=== PATIENT | male | born 1980 | race American Indian/Alaskan Native ===

== ENCOUNTER 2019-02-24 12:00 | Inpatient (IN) | payer BC ==
--- NOTE | 2019-02-24 12:08 | Emergency Department Report ---
Blank Doc - Documentation Documentation: This is a 39-year-old male that presents left sided numbness and headache. Exam: no facial drooping. Normal strength bilateral. No one-sided weakness noted. This initial assessment/diagnostic orders/clinical plan/treatment(s) is/are subject to change based on patient's health status, clinical progression and re- assessment by fellow clinical providers in the ED. Further treatment and workup at subsequent clinical providers discretion. Patient/guardians urged not to el ope from the ED as their condition may be serious if not clinically assessed and managed. Initial orders include: 1- Patient sent to MAIN ED for further evaluation and treatment 2- labs 3- CT head
--- NOTE | 2019-02-24 12:29 | Emergency Department Report ---
HPI - General Chief Complaint: Neuro Symptoms/Deficit Time Seen by Provider: 02/24/19 12:06 - HPI HPI: Room 5 The patient is a 39-year-old male presenting with a chief complaint of headache and left-sided weakness. The patient states he's had a left-sided headache for the past 4 days. Patient states he went to sleep last night at 22:00 but when he awakened this morning he noticed his headache had worsened and he had left- sided weakness. Patient states when he ambulates he appears to deviate to the left. Patient also complains of numbness to the left side of his body. Patient states he had slight dysarthria but denies dysphagia. Patient denies nausea/vomiting. Location: [See above] Duration: [See above] Quality: [See above] Severity: [See above] Modifying factors: [see above] Context: [see above] Mode of transportation: [not driving] ED Past Medical Hx - Past Medical History Previous Medical History?: No - Surgical History Past Surgical History?: No - Social History Smoking Status: Never Smoker Substance Use Type: None (denies illicit drug use), Alcohol (occasional) ED Review of Systems ROS: Stated complaint: NUMB LFT SIDE Other details as noted in HPI Constitutional: chills Eyes: denies: eye pain ENT: denies: throat pain Respiratory: no symptoms reported Cardiovascular: denies: chest pain Endocrine: no symptoms reported Gastrointestinal: denies: nausea, vomiting Genitourinary: denies: dysuria Musculoskeletal: denies: back pain Neurological: headache, weakness, numbness Physical Exam - Physical Exam Vital Signs: Vital Signs 02/24/19 12:06 Temperature 97.7 F Pulse Rate 67 Respiratory 16 Rate Blood Pressure 145/89 O2 Sat by Pulse 98 Oximetry Physical Exam: GENERAL: The patient is well-developed well-nourished male lying on stretcher not appear to be in acute distress. [] HEENT: Normocephalic. Atraumatic. Extraocular motions are intact. Patient has moist mucous membranes. NECK: Supple. Trachea midline CHEST/LUNGS: Clear to auscultation. There is no respiratory distress noted. HEART/CARDIOVASCULAR: Regular. There is no tachycardia. There is no gallop rub or murmur. ABDOMEN: Abdomen is soft, nontender. Patient has normal bowel sounds. There is no abdominal distention. SKIN: There is no rash. There is no edema. There is no diaphoresis. NEURO: The patient is awake, alert, and oriented. The patient is cooperative. The patient has no focal neurologic deficits. The patient has normal speech. Cranial nerves II through XII grossly intact with exception of left-sided V1 and V2 distribution. No drift. Patient able to hold either leg at 30 angle for 5 seconds count MUSCULOSKELETAL: There is no evidence of acute injury. NIHSS= 1 LOC a. Alert= 0 Not alert but arousable to minor stimuli=1 Not alert requires repeated or strong stimuli to move= 2 Responds only reflex motor or unresponsive=3 b. asks month and age answers both correctly= 0 answers one correctly= 1 answers neither correctly= 2 Best Gaze normal= 0 abnormal in one or both but forced deviation or total paresis absent= 1 forced deviation or total gaze paresis= 2 Visual no visual loss= 0 partial hemianopia= 1 complete hemianopia= 2 bilateral hemianopia= 3 Facial Palsy normal= 0 minor paralysis= 1 partial paralysis= 2 complete paralysis= 3 Motor Arm no drift= 0 drift before 10 secs but doesnt hit bed= 1 some effort against gravity= 2 no effort against gravity= 3 no movement= 4 Motor leg no drift= 0 drift before 5 secs but doesnt hit bed= 1 drifts to bed before 5 secs= 2 no effort against gravity= 3 no movement= 4 Limb ataxia absent=0 present in one limb= 1 present in two limbs= 2 Sensory normal= 0 (+)mild sensory loss= 1 severe (unaware of being touched)= 2 Best language mild/some loss of fluency= 1 severe= 2 mute= 3 Dysarthria normal= 0 slurs some words= 1 severe/unintelligible= 2 Extinction and Inattention no abnormality= 0 visual, tactile, auditory or personal inattention= 1 profound (doesnt recognize own hand or orients to only one side= 2 ED Course Vital Signs 02/24/19 12:06 Temperature 97.7 F Pulse Rate 67 Respiratory 16 Rate Blood Pressure 145/89 O2 Sat by Pulse 98 Oximetry - Consultations Consultation #1: 02/24/19 12:46 Case discussed with tele-neurologist- recommends MRI. No stroke intervention at this time ED Medical Decision Making - Lab Data Result diagrams: 02/24/19 12:19 02/24/19 12:19 - EKG Data -: EKG Interpreted by Me EKG shows normal: sinus rhythm Rate: normal - EKG Data When compared to previous EKG there are: previous EKG unavailable Interpretation: nonspecific ST-T wave suhas (T-wave inversion in lead V2) - Radiology Data Radiology results: report reviewed (CT head), image reviewed (CT head) [facility] [address] [id number] Cat Scan Report Signed Patient: BREONNA DE LEÓN R#: [id number] : 1980 Acct:[id number] Age/Sex: 39 / M ADM Date: 02/24/19 Loc: ED Attending Dr: Ordering Physician: YUN LAINEZ NP Date of Service: 02/24/19 Procedure(s): CT head/brain wo con Accession Number(s): [id number] cc: YUN LAINEZ NP CT HEAD WITHOUT CONTRAST: HISTORY: Stroke symptoms. TECHNIQUE: Sequential 2.5mm CT images. COMPARISON: none. FINDINGS: Cerebral Parenchyma: Within normal limits. Cerebellum: Within normal limits. Brainstem: Within normal limits. Ventricles: Normal. Sella: Normal. Extra-axial spaces: Normal. Basal Cisterns: Normal. Intracranial Hemorrhage: None. Midline Shift: None. Calvarium: Normal. Sinuses: Normal. Mastoid Air Cells: Normal. Visualized Orbits: Normal. IMPRESSION: Cranial CT scan within normal limits. These findings were discussed with Dr. Miranda in the emergency department at 1254 hrs. Transcribed By: TTR Dictated By: KELI LEMA JR, MD Electronically Authenticated By: KELI LEMA JR, MD Signed Date/Time: 02/24/19 125 DD/ 125 TD/TT: 02/24/19 1254 - Differential Diagnosis CVA, TIA, complex migraine, intracranial mass, ICH Critical care attestation.: If time is entered above; I have spent that time in minutes in the direct care of this critically ill patient, excluding procedure time. ED Disposition Clinical Impression: Left sided numbness, Headache Disposition: OP ADMIT IP TO THIS HOSP Is pt being admited?: Yes Does the pt Need Aspirin: Yes Condition: Fair Time of Disposition: 12:59 (hospitalist notified (Dr Costa))
[2019-02-24 12:34] LABS: Basophils # (Auto) 0.1 K/mm3 (0.0-0.1); Basophils % (Auto) 0.8 % (0.0-1.8); Eosinophils # (Auto) 0.2 K/mm3 (0.0-0.4); Eosinophils % (Auto) 1.9 % (0.0-4.3); Hematocrit 47.8 % (35.5-45.6); Lymphocytes # (Auto) 2.4 K/mm3 (1.2-5.4); Lymphocytes % (Auto) 29.8 % (13.4-35.0); Mean Corpuscular HGB Conc 34 % (32-34); Mean Corpuscular Volume 89 fl (84-94); Monocytes # (Auto) 0.6 K/mm3 (0.0-0.8); Monocytes % (Auto) 7.2 % (0.0-7.3); Platelet Count 263 K/mm3 (140-440); Red Cell Distribution Width 13.3 % (13.2-15.2)
--- NOTE | 2019-02-24 12:42 | Consultation ---
History of Present Illness History of present illness: [facility] Impression: Patient with GODOY and left-sided numbness. Rule out right hemispheric lacunar infarct with MRI. More likely migrainous. Consider conversion, as well. Not a tpa candidate due to: out of window, mild/nondisabling symptoms Not an YEN candidate due to: presentation not suggestive of LVO - no cortical/large vessel signs Differential Diagnosis: 1. Cardioembolic stroke 2. Small vessel disease/lacune 3. Thromboembolic, [id number] mechanism 4. Hypercoagulable state-related infarct 5. Transient ischemic attack 6. Thrombotic mechanism, large artery disease 7. Migraine 8. Conversion Comments: Door time: 1200 [facility] contacted: 1228 [facility] at bedside: 1233 NIHSS assessment time: 1241 (pt in CT on log in) Recommendations: MRI brain wo ASA inpatient neurology consultation Inpatient stroke evaluation as per Neurology/ Internal Medicine Discussed with ED MD CC: stroke alert History of Present Illness Patient is a39 year old man presenting with left-sided numbness. He states he's had a GODOY for the last 4 days. He went to bed normal last night at 2200 and woke this morning with GODOY and left-sided numbness. No weakness, vision change, speech/language changes, vertigo, hearing change, incoordination, gait change, CP. Diagnostic: CT head wo - nothing acute Exam: NIHSS score: 1 Mild sensory loss left side Medical Decision Making: - Extensive number of diagnosis or management options are considered above. - Extensive amount of complex data reviewed. - High risk of complication and/or morbidity or mortality are associated with differential diagnostic considerations above. - There may be Uncertain outcome and increased probability of prolonged functional impairment or high probability of severe prolonged functional impairment associated with some of these differential diagnosis. Medical Data Reviewed: 1.Data reviewed include clinical labs, radiology, Medical Tests; 2.Tests results discussed w/performing or interpreting physician; 3.Obtaining/reviewing old medical records; 4.Obtaining case history from another source; 5.Independent review of image, tracing or specimen. Patient was informed the Neurology Consult would happen via telehealth (remote video) and consented to receiving care in this manner. Medications and Allergies Allergies Allergy/AdvReac Type Severity Reaction Status Date / Time No Known Allergies Allergy Unverified 02/24/19 12:02 Home Medications Medication Instructions Recorded Confirmed Last Taken Type No Known Home Medications [No 02/24/19 02/24/19 Unknown History Reported Home Medications] Physical Examination - Vital Signs Vital Signs: Vital Signs Temp Pulse Resp BP Pulse Ox 97.7 F 67 16 145/89 98 02/24/19 12:06 02/24/19 12:06 02/24/19 12:06 02/24/19 12:06 02/24/19 12:06 - Level of Consciousness 1a. Level of Consciousness: alert/keenly responsive - LOC Questions 1b. LOC Questions: answers both correctly - LOC Command 1c. LOC Commands: performs tasks correctly - Best Gaze 2. Best Gaze: normal - Visual 3. Visual: no visual loss - Facial Palsy 4. Facial Palsy: normal symmetrical movement - Motor Arm 5a. Motor Arm Left: no drift 5b. Motor Arm Right: no drift - Motor Leg 6a. Motor Leg Left: no drift 6b. Motor Leg Right: no drift - Limb Ataxia 7. Limb Ataxia: absent - Sensory 8. Sensory: mild/moderate sensory loss - Best Language 9. Best Language: no aphasia - Dysarthria 10. Dysarthria: normal - Extinction and Inattention 11. Extinction/Inattention: no abnormality - Scoring Total Score: 1 Stroke Severity: Minor Stroke Results - Laboratory Findings CBC and BMP: 02/24/19 12:19 02/24/19 12:19 Abnormal Lab Findings: Abnormal Labs 02/24/19 12:19 RBC 5.40 H Hgb 16.0 H Hct 47.8 H
[2019-02-24 12:44] LABS: INR 0.9 (0.87-1.13)
[2019-02-24 12:45] LABS: Partial Thromboplastin Time 26.4 Sec. (24.2-36.6)
[2019-02-24 12:50] LABS: BUN/Creatinine Ratio 19; Blood Urea Nitrogen 13 mg/dL (9-20); Calcium 9.6 mg/dL (8.4-10.2); Hemolysis Index 10
[2019-02-24] MEDS ORDERED: ASPIRIN PO ONE (12:57)
--- NOTE | 2019-02-24 12:59 | Cat Scan Report ---
CT HEAD WITHOUT CONTRAST: HISTORY: Stroke symptoms. TECHNIQUE: Sequential 2.5mm CT images. COMPARISON: none. FINDINGS: Cerebral Parenchyma: Within normal limits. Cerebellum: Within normal limits. Brainstem: Within normal limits. Ventricles: Normal. Sella: Normal. Extra-axial spaces: Normal. Basal Cisterns: Normal. Intracranial Hemorrhage: None. Midline Shift: None. Calvarium: Normal. Sinuses: Normal. Mastoid Air Cells: Normal. Visualized Orbits: Normal. IMPRESSION: Cranial CT scan within normal limits. These findings were discussed with Dr. Miranda in the emergency department at 1254 hrs.
[2019-02-24] MEDS ORDERED: DILAUDID IV PRN (15:36)
[2019-02-24] MEDS ORDERED: TYLENOL PO PRN (15:36)
[2019-02-24] MEDS ORDERED: ZOFRAN IV PRN (15:36)
[2019-02-24] MEDS ORDERED: SODIUM CHLORIDE FLUSH SYRINGE 10 ML IV PRN ×2 (15:36→15:51)
--- NOTE | 2019-02-24 15:36 | History and Physical Report ---
History of Present Illness Date of examination: 02/24/19 Date of admission: 02/24/19 13:00 Chief complaint: Headaches since 4 days History of present illness: 39-year-old Chinese-speaking male with no significant past medical history comes in for headache since 4 days. Initially mild and intermittent until last night. 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 Associated with nausea. Pain is sharp and about 10 on a scale of 1-10. Patient also experiencing left-sided weakness and left-sided numbness since morning which has nearly resolved by the time of my examination at 1:00 PM. Patient able to walk. No precipitating or exacerbating factors or relieving factors. This is the first episode of severe headache. Never had migraines in the past. Past Medical History Previous Medical History?: No Surgical History Past Surgical History?: No Social History Smoking Status: Never Smoker Substance Use Type: None (denies illicit drug use), Alcohol (occasional) Family History Noncontributory Review of Systems ROS: Stated complaint: NUMB LFT SIDE which has resolved Other details as noted in HPI Constitutional: chills Eyes: denies: eye pain ENT: denies: throat pain Respiratory: no symptoms reported Cardiovascular: denies: chest pain Endocrine: no symptoms reported Gastrointestinal: denies: nausea, vomiting Genitourinary: denies: dysuria Musculoskeletal: denies: back pain Neurological: headache-severe since morning, associated with nausea, weakness, numbness Medications and Allergies Allergies Allergy/AdvReac Type Severity Reaction Status Date / Time No Known Allergies Allergy Verified 02/24/19 15:43 Home Medications Medication Instructions Recorded Confirmed Last Taken Type No Known Home Medications [No 02/24/19 02/24/19 Unknown History Reported Home Medications] Exam - Physical Exam Narrative exam: Lying in bed comfortably - Constitutional Vitals: Temp Pulse Resp BP Pulse Ox 98.7 F 62 18 139/85 100 02/24/19 13:55 02/24/19 13:55 02/24/19 13:55 02/24/19 13:55 02/24/19 13:55 General appearance: Present: no acute distress, well-nourished - EENT Eyes: Present: PERRL ENT: hearing intact, clear oral mucosa - Neck Neck: Present: supple, normal ROM - Respiratory Respiratory effort: normal Respiratory: bilateral: CTA - Cardiovascular Heart rate: 78 Rhythm: regular Heart Sounds: Present: S1 & S2. Absent: rub, click - Extremities Extremities: no ischemia, pulses intact, pulses symmetrical, No edema Peripheral Pulses: within normal limits - Abdominal General gastrointestinal: Present: soft, non-tender, non-distended, normal bowel sounds Male genitourinary: Present: normal - Rectal Rectal Exam: deferred - Integumentary Integumentary: Present: clear, warm, dry - Musculoskeletal Musculoskeletal: strength equal bilaterally, other (power is equal on both upper and lower extremities) - Psychiatric Psychiatric: appropriate mood/affect, intact judgment & insight - Neurologic Neurologic: CNII-XII intact, moves all extremities, gait normal, other (sensory system normal. Motor system normal. Power is 5/5 in all 4 extremities. Reflexes are normal.) Results - Labs CBC & Chem 7: 02/24/19 12:19 02/24/19 12:19 Labs: Laboratory Last Values WBC 8.1 K/mm3 (4.5-11.0) 02/24/19 12: RBC 5.40 M/mm3 (3.65-5.03) H 02/24/19 12:19 Hgb 16.0 gm/dl (11.8-15.2) H 02/24/19 12:19 Hct 47.8 % (35.5-45.6) H 02/24/19 12:19 MCV 89 fl (84-94) 02/24/19 12:19 MCH 30 pg (28-32) 02/24/19 12:19 MCHC 34 % (32-34) 02/24/19 12:19 RDW 13.3 % (13.2-15.2) 02/24/19 12:19 Plt Count 263 K/mm3 (140-440) 02/24/19 12:19 Lymph % (Auto) 29.8 % (13.4-35.0) 02/24/19 12:19 [place] % (Auto) 7.2 % (0.0-7.3) 02/24/19 12:19 Eos % (Auto) 1.9 % (0.0-4.3) 02/24/19 12:19 Baso % (Auto) 0.8 % (0.0-1.8) 02/24/19 12:19 Lymph # 2.4 K/mm3 (1.2-5.4) 02/24/19 12:19 [place] # 0.6 K/mm3 (0.0-0.8) 02/24/19 12:19 Eos # 0.2 K/mm3 (0.0-0.4) 02/24/19 12:19 Baso # 0.1 K/mm3 (0.0-0.1) 02/24/19 12:19 Seg Neutrophils % 60.3 % (40.0-70.0) 02/24/19 12:19 Seg Neutrophils # 4.9 K/mm3 (1.8-7.7) 02/24/19 12:19 PT 12.7 Sec. (12.2-14.9) 02/24/19 12:19 INR 0.90 (0.87-1.13) 02/24/19 12:19 APTT 26.4 Sec. (24.2-36.6) 02/24/19 12:19 Sodium 140 mmol/L (137-145) 02/24/19 12:19 Potassium 4.0 mmol/L (3.6-5.0) 02/24/19 12:19 Chloride 102.2 mmol/L (98-107) 02/24/19 12:19 Carbon Dioxide 25 mmol/L (22-30) 02/24/19 12:19 Anion Gap 17 mmol/L 02/24/19 12:19 BUN 13 mg/dL (9-20) 02/24/19 12:19 Creatinine 0.7 mg/dL (0.8-1.5) L 02/24/19 12:19 Estimated GFR > 60 ml/min 02/24/19 12:19 BUN/Creatinine Ratio 19 % 02/24/19 12:19 Glucose 125 mg/dL (75-100) H 02/24/19 12:19 POC Glucose 104 (70-105) 02/24/19 12:36 Calcium 9.6 mg/dL (8.4-10.2) 02/24/19 12:19 Blood Type O POSITIVE 02/24/19 12:19 Antibody Screen Negative 02/24/19 12:19 Short CBC 02/24/19 Range/Units 12:19 WBC 8.1 (4.5-11.0) K/mm3 Hgb 16.0 H (11.8-15.2) gm/dl Hct 47.8 H (35.5-45.6) % Plt Count 263 (140-440) K/mm3 [facility] 02/24/19 12:19 Sodium 140 Potassium 4.0 Chloride 102.2 Carbon Dioxide 25 BUN 13 Creatinine 0.7 L Glucose 125 H Calcium 9.6 - Imaging and Cardiology EKG: report reviewed (normal sinus rhythm heart rate of 61/m no acute ST-T wave changes left atrial enlargement.) CT Scan - head: report reviewed Imaging and Cardiology: Head CT IMPRESSION: Cranial CT scan within normal limits. Assessment and Plan Advance Directives: Yes (full code) VTE prophylaxis?: Chemical Plan of care discussed with patient/family: Yes - Patient Problems (1) Migraine Current Visit: Yes Status: Acute Qualifiers: Migraine type: periodic headache syndrome Intractability: intractable Qualified Code(s): G43.C1 - Periodic headache syndromes in child or adult, intractable Plan to address problem: Patient has severe headaches since hospital admissions officer. Has some numbness and weakness which have resolved. Clinical picture consistent with complex migraine with transient hemiparesis which has resolved. Treatment with Triptans and analgesics (2) Left sided numbness Current Visit: Yes Status: Acute Plan to address problem: Secondary to complex migraine CVA workup MRI MRA echocardiogram and carotid duplex scan ordered Neuro consult ordered (3) DVT prophylaxis Current Visit: Yes Status: Acute Plan to address problem: On Lovenox 40 mg subcutaneous daily and GI prophylaxis
[2019-02-24] MEDS ORDERED: FIORICET PO PRN (15:47)
[2019-02-24] MEDS: PEPCID IV SCH ×2 (16:29→21:03)
[2019-02-24] MEDS: NACL 0.9% 1000 ML 1,000 ML IV SCH (17:33)
--- NOTE | 2019-02-24 18:36 | Magnetic Resonance Report ---
PROCEDURE: MR BRAIN WO CON TECHNIQUE: Magnetic resonance imaging of the brain was performed without contrast material. HISTORY: Stroke symptoms COMPARISONS: None . FINDINGS: There is no restricted diffusion to suggest acute infarction. Midline structures including sella are unremarkable in appearance. No signal dropout is seen on gradient echo images. No hydrocephalus. No a bnormal extra-axial fluid collection. There is mucosal thickening in the right frontal sinus, bilater al ethmoid sinuses, left sphenoid sinus and left maxillary sinus. The globes and orbits are unremarka ble in appearance. No parenchymal signal abnormalities are seen. IMPRESSION: No evidence of acute infarction or other acute abnormality . This document is electronically signed by Isabell Solis MD., February 24 2019 06:34:42 PM ET
--- NOTE | 2019-02-24 18:38 | Magnetic Resonance Report ---
PROCEDURE: MR MRA/MRV HEAD WO CON TECHNIQUE: Axial 3-D [id number] MR angiography of the [place] of [place] and brain was performed. The source images were reconstructed in various views using maximum intensity projection. HISTORY: Stroke symptoms COMPARISONS: None . FINDINGS: Vertebral arteries: Normal . Basilar artery: Normal . Internal carotid arteries: Normal . Anterior cerebral arteries: Normal . Middle cerebral arteries: Normal . Posterior cerebral arteries: Normal . Branch occlusions: None . Vascular malformations: None . IMPRESSION: No occlusion or significant arterial stenosis . This document is electronically signed by Isabell Solis MD., February 24 2019 06:37:16 PM ET
[2019-02-24] MEDS ORDERED: SODIUM CHLORIDE FLUSH SYRINGE 10 ML IV SCH (22:00)
[2019-02-24] MEDS ORDERED: PRAVACHOL PO SCH (22:00)
[2019-02-25] MEDS: NACL 0.9% 1000 ML 1,000 ML IV SCH (06:06)
[2019-02-25 07:25] VITALS: BP 123/82
[2019-02-25 07:35] LABS: Hematocrit 44.1 % (35.5-45.6); Lymphocytes % (Auto) 33.4 % (13.4-35.0); Mean Corpuscular HGB Conc 34 % (32-34); Mean Corpuscular Volume 90 fl (84-94); Platelet Count 242 K/mm3 (140-440); Red Blood Count 4.92 M/mm3 (3.65-5.03); Red Cell Distribution Width 13.3 % (13.2-15.2)
[2019-02-25 07:36] LABS: Basophils # (Auto) 0.1 K/mm3 (0.0-0.1); Basophils % (Auto) 0.8 % (0.0-1.8); Eosinophils # (Auto) 0.4 K/mm3 (0.0-0.4); Eosinophils % (Auto) 4.8 % (0.0-4.3); Lymphocytes # (Auto) 2.8 K/mm3 (1.2-5.4); Monocytes # (Auto) 0.7 K/mm3 (0.0-0.8); Monocytes % (Auto) 8.3 % (0.0-7.3)
[2019-02-25] MEDS ORDERED: MORPHINE IV PRN (07:36)
[2019-02-25 07:54] LABS: Alanine Aminotransferase 40 units/L (7-56); Albumin 3.9 g/dL (3.9-5); BUN/Creatinine Ratio 24; Blood Urea Nitrogen 17 mg/dL (9-20); Calcium 8.6 mg/dL (8.4-10.2); Chol/HDL Ratio 5.52 %; HDL Cholesterol 34 mg/dL (40-59); Hemolysis Index 11; LDL Cholesterol,Direct 145 mg/dL (50-130)
--- NOTE | 2019-02-25 08:27 | Progress Note ---
Subjective Date of service: 02/25/19 Interval history: went over the MRA and MRI as well ass the admitting CT of the [facility] the ED note reviewed and consists of hedaches... based on negative imaging studies suspect migraine headaches-- nothing clinically to suggest stroke BP may be contributing factor Objective - Vital Sign Vital Signs - 12hr 02/24/19 02/25/19 02/25/19 20:59 01:01 06:44 Temperature 97.9 F 97.8 F Pulse Rate 57 L 57 L Respiratory 17 18 Rate Blood Pressure 104/62 123/82 O2 Sat by Pulse 99 97 97 Oximetry - Laboratory Findings CBC and BMP: 02/25/19 06:31 02/25/19 06:31 Abnormal Lab Findings: Abnormal Labs 02/24/19 02/24/19 02/25/19 12:19 12:19 06:31 RBC 5.40 H Hgb 16.0 H Hct 47.8 H [place] % (Auto) 8.3 H Eos % (Auto) 4.8 H Creatinine 0.7 L Glucose 125 H Triglycerides LDL Cholesterol Direct HDL Cholesterol 02/25/19 06:31 RBC Hgb Hct [place] % (Auto) Eos % (Auto) Creatinine 0.7 L Glucose 107 H Triglycerides 177 H LDL Cholesterol Direct 145 H HDL Cholesterol 34 L
[2019-02-25] MEDS ORDERED: ASPIRIN PR SCH (10:00)
[2019-02-25] MEDS ORDERED: ASPIRIN PO SCH (10:00)
--- NOTE | 2019-02-25 12:10 | Vascular Lab Report ---
PROCEDURE: VL CAROTID DUPLEX BILAT TECHNIQUE: Duplex Doppler ultrasound of the common, internal and external carotid arteries and the v ertebral arteries was performed bilaterally. Akbar scale imaging, velocity spectral waveform analysis, and color flow Doppler were employed. HISTORY: stroke COMPARISONS: None . Note: Measurement of carotid stenosis is based on flow velocity values that correlate with the [place] Symptomatic Carotid Endarterectomy Trial (NASCET) based stenosis criteria using the internal carotid artery diameter as the denominator for stenosis calculation. FINDINGS: RIGHT carotid artery: Velocities: ICA PSV: 85 cm/sec ICA End diastolic: 34 cm/sec CCA PSV: 111 cm/sec IC/CC ratio: 0.7 7 Plaque/color flow: Mild homogeneous plaque without significant spectral broadening or abnormal color flow . RIGHT vertebral artery: Antegrade systolic and diastolic flow LEFT carotid artery: Velocities: ICA PSV: 80 cm/sec ICA End diastolic: 32 cm/sec CCA PSV: 81 cm/sec IC/CC ratio: 0.98 Plaque/color flow: Mild homogeneous plaque without significant spectral broadening or abnormal color flow . LEFT vertebral artery: Antegrade systolic and diastolic flow IMPRESSION: 1. RIGHT carotid: No hemodynamically significant (less than 50 percent) internal carotid artery christo nosis. 2. LEFT carotid: No hemodynamically significant (less than 50 percent) internal carotid artery sten osis. 3. Vertebral arteries: Bilaterally antegrade. This document is electronically signed by Jhoana Hernandez MD., February 25 2019 12:08:30 PM ET
--- NOTE | 2019-02-25 12:23 | Discharge Summary ---
Providers - Providers Date of Admission: 02/24/19 13:00 Date of discharge: 02/25/19 Attending physician: RANDY VREA 02/24/19 15:36 Consult to Physician [CONS] Routine Comment: Consulting Provider: ARLEEN RENAE Physician Instructions: Reason For Exam: complex migraine versus TIA 02/24/19 15:51 Occupational Therapy Evaluate and Treat [CONS] Routine Comment: Reason For Exam: Neuro deficits Physical Therapy Evaluation and Treat [CONS] Routine Comment: Reason For Exam: Neuro deficits Primary care physician: [employer] Hospitalization Condition: Fair Hospital course: Patient is 39 yo with no significant past medical history comes in for headache for 4 days. headache was associated with nausea. patient also had transient numbness and weakness on left side. He was seen and evaluated in ED. CT head was negative. Patient was admitted, evaluated by Neurologist. MRI Brain unremarkable. By following day headache subsided and patient was discharged home she diagnosis is complicated migraine headache. Disposition: - TO HOME OR SELFCARE - Discharge Diagnoses (1) Complicated migraine Status: Acute (2) Headache Status: Acute (3) Migraine Status: Acute Qualifiers: Migraine type: periodic headache syndrome Intractability: intractable Qualified Code(s): G43.C1 - Periodic headache syndromes in child or adult, intractable Core Measure Documentation - Palliative Care Palliative Care/ Comfort Measures: Not Applicable - Core Measures Any of the following diagnoses?: none Exam - Constitutional Vitals: Temp Pulse Resp BP Pulse Ox 97.8 F 57 L 18 123/82 97 02/25/19 06:44 02/25/19 06:44 02/25/19 06:44 02/25/19 06:44 02/25/19 09:19 Plan Activity: no restrictions Diet: low fat, low cholesterol, low salt Additional Instructions: 1.Follow up with PCP or [facility] in 1 week Follow up with: PRIMARY CAREMD [Primary Care Provider] - 7 Days Prescriptions: Butalb/Acetamin/Caff 50-325-40 [Fioricet] 1 tab PO Q4H PRN #20 tablet PRN Reason: Headache Simvastatin 20 mg PO QHS #30 tablet
[2019-02-25] MEDS: PEPCID IV SCH (13:18)
--- NOTE | 2019-02-25 13:31 | Progress Note ---
Subjective Date of service: 02/25/19 Interval history: OK to discharge on fioricet normal exam likely is complicated migraine explained the dx to patient current BP is normal Thanks Objective - Vital Sign Vital Signs - 12hr 02/25/19 02/25/19 06:44 09:19 Temperature 97.8 F Pulse Rate 57 L Respiratory 18 Rate Blood Pressure 123/82 O2 Sat by Pulse 97 97 Oximetry - Laboratory Findings CBC and BMP: 02/25/19 06:31 02/25/19 06:31 Abnormal Lab Findings: Abnormal Labs 02/24/19 02/24/19 02/25/19 12:19 12:19 06:31 RBC 5.40 H Hgb 16.0 H Hct 47.8 H [place] % (Auto) 8.3 H Eos % (Auto) 4.8 H Creatinine 0.7 L Glucose 125 H Triglycerides LDL Cholesterol Direct HDL Cholesterol 02/25/19 06:31 RBC Hgb Hct [place] % (Auto) Eos % (Auto) Creatinine 0.7 L Glucose 107 H Triglycerides 177 H LDL Cholesterol Direct 145 H HDL Cholesterol 34 L
--- NOTE | 2019-02-25 21:44 | Consultation ---
HISTORY OF PRESENT ILLNESS: This 39-year-old male that presented to the Emergency Room at [facility] with on and off headaches, weakness of the right side. He presented with a 3-4 day history of the same problem. He had had no prior history of similar problems. 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 He would awake intermittently with headaches, which at times are severe then better then severe again. His headache was prolonged. He had right-sided weakness. He had evidence also of hypertension. ALLERGIES: The patient has no known allergies. SOCIAL HISTORY: Denies drinking or smoking. He is . FAMILY HISTORY: Unremarkable for headaches. PHYSICAL EXAMINATION: VITAL SIGNS: His blood pressure was 123/82, respirations 18, pulse rate is 57, temperature is 97.8 degrees. His PaO2 on room air is 97%. NEUROLOGIC: His ocular movements are full. Speech is clear. His affect is appropriate. He swallows well. His cranial nerves are intact. He has no tremors, no asterixis. No focal motor weakness is present. The patient does not have any visual field defects. IMPRESSION: This patient likely has migraine, complicated. At least from reviewing his MRI, MRA and CT scan of the head, I see no evidence of any vascular disease. Specifically, I do not think he fits in the category that I would believe that this is due to temporal arteritis because of his age and I do not think that it is worth working up the patient for an inflammatory arteritis such as lupus or RA because this does not fit the clinical profile. By description, his headaches are more typical migrainous. They are of migrainous quality and he has at present normal neurological examination and has negative imaging studies. PLAN: To evaluate this patient on an outpatient basis. It is okay to discharge him at this point on Fioricet. JOB# [id number] CARROL/NTS
== END 2019-02-25 14:02 | disposition home or self-care (01) | DRG 103 ==
LOC: ED 12:00 → 3A 13:00
PROVIDERS: ADMIT Internal Medicine; ATTEND Internal Medicine
DX: G43.819 Other migraine, intractable, without status migrainosus (principal); G44.89 Other headache syndrome; R20.0 Anesthesia of skin; Z72.89 Other problems related to lifestyle
CPT/HCPCS: 36415; 70450; 70544; 70551; 80048; 80053; 80061; 82962; 83036; 85025; 85610; 85730; 86850; 86900; 86901; 93005; 93010; 93306; 93880; G0378; A9270-GY; J7030